=== PATIENT | female | born 1965 | race Caucasian/White ===

== ENCOUNTER → 2016-07-02 | Outpatient (CLI) | payer OTHER | LOC: MERGE 10:57 → UNMERGE 10:57 → FIMAGING 10:57 | DX: Z12.31 Encounter for screening mammogram for malignant neoplasm of breast (principal); Z80.3 Family history of malignant neoplasm of breast | CPT/HCPCS: G0202 ==

== ENCOUNTER → 2016-07-18 | Outpatient (CLI) | payer OTHER | LOC: BRMIMAGING 13:06 → MERGE 13:30 → UNMERGE 13:30 | PROVIDERS: ATTEND Obstetrics & Gynecology Gynecology | DX: Z13.820 Encounter for screening for osteoporosis (principal); N95.9 Unspecified menopausal and perimenopausal disorder; Z82.62 Family history of osteoporosis ==

== ENCOUNTER → 2016-08-30 | Day surgery (SDC) | payer OTHER ==
[~2016-08-30] MED LIST: FLUMAZENIL 0.5 MG/5 ML MDV IVP ONE; HYDROCODONE/APAP 5/325 TAB PO PRN; IBUPROFEN 200 MG TAB PO ONE; LIDO/EPI 1% **for epidural** 30 ML SDV ONE; MIDAZOLAM 2 MG/2 ML VIAL ONE; NALOXONE HCL 0.4 MG/ML INJ ONE; NS 1,000 ML IV ONE; ONDANSETRON 4 MG/2 ML VIAL IVP ONE; ONDANSETRON 4 MG/2 ML VIAL IVP PRN; ONDANSETRON DISINTEGRATING 4 MG TAB PO PRN; SODIUM TETRADECYL SULFATE 60 MG/2 ML VIAL IV ONE; ceFAZolin 2 GM/DEXTROSE 100 ML IV ONE; fentaNYL 100 MCG/2 ML INJ ONE
[2016-08-30 11:30] VITALS: RESP 14
[2016-08-30 13:53] VITALS: TEMP 97.6
[2016-08-30 13:58] VITALS: BP 101/65; PULSE 65; O2SAT 96
== END | disposition home or self-care (01) ==
LOC: FIMAGING 07:15
PROVIDERS: ATTEND Radiology Diagnostic Radiology
DX: I83.892 Varicose veins of left lower extremity with other complications (principal)
CPT/HCPCS: J0690; J2250; J2310; J2405; J3010

== ENCOUNTER → 2016-12-26 | Outpatient (CLI) | payer OTHER | LOC: FIMAGING 11:21 | PROVIDERS: ATTEND Physician Assistant Medical | DX: N63.10 Unspecified lump in the right breast, unspecified quadrant (principal) | CPT/HCPCS: G0206 ==

== ENCOUNTER → 2017-07-03 | Outpatient (CLI) | payer OTHER | LOC: FIMAGING 08:39 | PROVIDERS: ATTEND Obstetrics & Gynecology Gynecology | DX: Z12.31 Encounter for screening mammogram for malignant neoplasm of breast (principal) ==

== ENCOUNTER → 2018-08-13 | Outpatient (CLI) | payer OTHER | LOC: FIMAGING 07:47 ==

== ENCOUNTER → 2018-08-15 | Outpatient (CLI) | payer OTHER | LOC: BRMIMAGING 09:07 ==